=== PATIENT | female | born 2000 | race Caucasian/White ===

== ENCOUNTER 2023-10-20 13:27 | Outpatient (REF) | payer OTHER, SELFPAY ==
--- NOTE | ~2023-10-20 | US_ITS ---
EXAMINATION: US PELVIS COMPLETE TRANSVAGINAL PELVIC ULTRASOUND: CLINICAL INFORMATION: Irregular bleeding for 1.5 months COMPARISON: None TECHNIQUE: Transabdominal imaging initially performed. For more definitive evaluation of the endometrium and ovaries, transvaginal technique was employed. FINDINGS: Uterus is anteverted measuring 7.6 x 3.5 x 5.0cm. Endometrium measures 0.5 cm. Small amount of fluid identified in the endocervical canal. Right ovary measures 2.2 x 1.3 x 2.2 cm for a volume of 3.2 mL. The left ovary measures 3.0 x 3.1 x 2.3 cm for a volume of 12.6 mL. 2.2 x 2.0 x 1.7 cm left ovarian cyst is seen. There is small amount of pelvic free fluid. US/US pelvic and transvaginal IMPRESSION: Small amount of endocervical fluid. 2.2 cm left ovarian cyst and small amount of free pelvic fluid.
== END 2023-10-20 13:28 | disposition home or self-care (01) ==
LOC: HO.UMASIMG 13:27
PROVIDERS: PCP Nurse Practitioner Women's Health; Visit Provider Nurse Practitioner Women's Health
DX: N92.6 Irregular menstruation, unspecified (principal)
CPT/HCPCS: 76830; 76856